=== PATIENT | female | born 1980 | race Two or more races ===

== ENCOUNTER 2024-08-15 09:16 | Emergency (ER) | payer MEDICAID ==
[~2024-08-15] VITALS: Ht 152.4 cm; Wt 66.9 kg
[~2024-08-15 09:16] MED LIST: TYLENOL #3
[2024-08-15 10:22] VITALS: BP 140/60; PULSE 78; RESP 18; TEMP 97.6; O2SAT 98
[2024-08-15] MEDS ORDERED: METH4PAK PO (10:59)
[2024-08-15] MEDS ORDERED: FLUO0.054 TOP (10:59)
[2024-08-15] MEDS ORDERED: CEPH500T PO (10:59)
[2024-08-15] MEDS ORDERED: HYDR-3682 PO (10:59)
--- NOTE | 2024-08-15 10:59 | ED.PDOC ---
History of Present Illness(SKN HPI Comments A 44-year-old female with a history of eczema presents with a chief complaint of crusty flaky erythematous maculopapular rash to the dorsal and volar aspect of the hands. Has not taken medications for the symptoms listed above. Symptoms described as itching Denies fever chills night sweats nausea vomiting diarrhea Denies persistent loss of appetite nor unintentional weight loss over the past 3 months Denies history of STI Denies cough and cold-like symptoms Denies recent travel Denies sick contact with similar rash Denies new topical creams/lotions/shampoos/detergents Denies noticing any insects Denies bruising bleeding anywhere Denies chronic skin issues or family history of skin issues Chief Complaint: Rash Time Seen by MD: 09:53 Primary Care Provider: DURAN History of Present Illness: Nurses Notes, Medications, Allergies Allergies: Coded Allergies: NO KNOWN ALLERGIES (Verified , 03/31/14) Home Meds Active Scripts Hydroxyzine Hcl (Hydroxyzine Hcl) 25 Mg Tab, 1 TAB PO TIDPRN PRN for 14 Days, #42 TAB 0 Refills Prov:TORY MCGRAW NP 08/15/24 Methylprednisolone (Medrol Dosepak) 4 Mg Aric, 4 MG PO UD, #21 TAB 0 Refills UAD Prov:TORY MCGRAW NP 08/15/24 Fluocinonide (Fluocinonide) 0.05 % Oin, 1 APPLIC TOP BID for 7 Days, #30 GRAMS 0 Refills Prov:TORY MCGRAW NP 08/15/24 Cephalexin Monohydrate (Cephalexin) 500 Mg Tab, 1 TAB PO QID for 5 Days, #20 TAB 0 Refills Prov:TORY MCGRAW NP 08/15/24 Reported Medications [Tylenol #3] No Conflict Check 06/29/10 Information Source: Patient Mode of Arrival: Ambulatory Past Medical History PAST MEDICAL HISTORY: Denies Surgical History: Denies all surgeries 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 History Family History Family History: No family hx of Cancer Social History Smoker: Non-Smoker Alcohol: Rarely Drugs: Denies Drug Use Lives In: Home All Other Systems: Reviewed and Negative (per hpi) Physical Exam General Appearance: No Apparent Distress, Normal HEENT: Normal ENT Inspection, Pharynx Normal, TMs Normal Neck: Full Range of Motion, Non-Tender, Normal, Normal Inspection Respiratory: Chest Non-Tender, Lungs Clear, No Accessory Muscle Use, No Respiratory Distress, Normal Breath Sounds Cardiovascular: No Edema, No JVD, No Murmur, No Gallop, Normal Peripheral Pulses, Regular Rate/Rhythm Breast Exam: Deferred Gastrointestinal: No Organomegaly, Non Tender, No Pulsatile Mass, Normal Bowel Sounds, Soft Genitalia: Deferred Pelvic: Deferred Rectal: Deferred Extremities: No calf tenderness, Normal capillary refill, Normal inspection, Normal range of motion, Non-tender, No pedal edema Musculoskeletal : Apperance: Normal Neurologic: Alert, 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 Was a procedure done?: No Images 1 - Erythematous dry flaky crusty maculopapular rash. Nontender to palpation. Differential Diagnosis (INTG) Differential Diagnosis: Atopic dermatitis X-Ray, Labs, Meds, VS Vital Signs Date Time Temp Pulse Resp B/P (MAP) Pulse Ox O2 Delivery O2 Flow Rate FiO2 08/15/24 10:22 78 18 98 Room Air 08/15/24 10:22 97.6 78 18 140/60 (86) 98 97.6 08/15/24 09:43 97.5 77 20 141/66 (91) 100 X-Ray, Labs, Meds, VS Comment Exam findings consistent with dermatitis Use medicine and calamine lotion as directed Advised good general skin care practices Recommended patient to use emollients twice daily Informed patient it is okay to bathe daily. Use warm water and apply medications/emollients after patting dry Advised patient to avoid any known or confirmed allergens or irritants Return precautions discussed including worsening rash or signs of superinfection Based on show decision-making patient agreed to empiric treatment Time of 1ST Reevaluation: 10:00 Reevaluation 1ST: Improved Patient Education/Counseling: Diagnosis, Treatment Family Education/Counseling: Diagnosis, Treatment Departure 1 Departure Time of Disposition: 10:57 Impression: Primary Impression: Dermatitis Disposition: 01 HOME / SELF CARE / HOMELESS Condition: Stable e-Prescriptions Hydroxyzine Hcl (Hydroxyzine Hcl) 25 Mg Tab 1 TAB PO TIDPRN PRN for 14 Days, #42 TAB 0 Refills Prov: TORY MCGRAW NP 08/15/24 Methylprednisolone (Medrol Dosepak) 4 Mg Aric 4 MG PO UD, #21 TAB 0 Refills UAD Prov: TORY MCGRAW NP 08/15/24 Fluocinonide (Fluocinonide) 0.05 % Oin 1 APPLIC TOP BID for 7 Days, #30 GRAMS 0 Refills Prov: TORY MCGRAW NP 08/15/24 Cephalexin Monohydrate (Cephalexin) 500 Mg Tab 1 TAB PO QID for 5 Days, #20 TAB 0 Refills Prov: TORY MCGRAW NP 08/15/24 Discharged With: Self Critical Care Note Critical Care Time?: No Stability Stability form required: No Heart Score Heart Score: Heart Score Response (Comments) Value History N/A 0 EKG N/A 0 Age N/A 0 Risk Factors N/A 0 Troponin N/A 0 Total 0 TORY MCGRAW NP Aug 15, 2024 10:59
== END 2024-08-15 11:49 | disposition home or self-care (01) ==
LOC: ER 09:16
DX: L30.9 Dermatitis, unspecified (principal); Z79.899 Other long term (current) drug therapy